=== PATIENT | female | born 1990 | race Hispanic/Latino ===

== ENCOUNTER 2019-09-16 18:28 | Emergency (ER) | payer SELFPAY ==
[~2019-09-16] VITALS: Ht 154.9 cm; Wt 76.2 kg
[2019-09-16] MEDS ORDERED: PENICILLIN G BENZATHINE LA 1.2 MU TBX IM STA (18:37)
--- OUTSIDE RECORDS SUMMARY | 2019-09-16 18:39 | XMS REPORT ---
Author Author [facility] Organization [facility] Address Unknown Phone Unavailable Care Team Providers Care Traffic Signal Technician Name Role Phone Unavailable Unavailable Payers Payer Name Policy Type Policy Number Effective Date Expiration D ate Problems This patient has no known problems. Allergies, Adverse Reactions, Alerts Allergy Name Allergy Type Status Severity Reaction(s) Onset Date Inacti ve Date Treating Clinician Comments No Known Allergies DA Active U 2016-07-13 00:00:00 Medications This patient has no known medications.
[2019-09-16] MEDS ORDERED: ACETAMINOPHEN/CODEINE ELIX 120-12 MG/5 ML UDC NG ONE (18:45)
[2019-09-16] MEDS ORDERED: ONDANSETRON HCL 4 MG ORAL DISINTEGRATING TAB PO ONE (18:45)
[2019-09-16] MEDS ORDERED: ACETAMINOPHEN 325 MG TAB PO ONE (18:45)
[2019-09-16] MEDS ORDERED: DEXAMETHASONE SOD PHOS 10 MG/1 ML VIAL IM ONE (18:45)
[2019-09-17 03:48] VITALS: BP 126/63
== END 2019-09-16 19:55 | disposition home or self-care (01) ==
LOC: ER 18:37
DX: J02.0 Streptococcal pharyngitis (principal); R11.0 Nausea
CPT/HCPCS: 99282; J0561; J1100; Q0162

== ENCOUNTER 2021-03-19 15:49 | Emergency (ER) | payer OTHER ==
[~2021-03-19] VITALS: Ht 154.9 cm; Wt 83.9 kg
[2021-03-19] MEDS ORDERED: PREDNISONE20 MG PO (16:36)
== END 2021-03-19 16:45 | disposition home or self-care (01) ==
LOC: ER 15:51
DX: L50.9 Urticaria, unspecified (principal)
CPT/HCPCS: 99283